=== PATIENT | female | born 1930 | race Caucasian/White ===

== ENCOUNTER 2017-05-05 18:55 | Inpatient (IN) | payer MEDICARE, OTHER ==
[~2017-05-05] VITALS: Ht 157.5 cm; Wt 65.8 kg
[2017-05-05] MEDS ORDERED: SODIUM CHLORIDE 0.9% 1,000 ML IV ONE ×2 (19:03→21:12)
[2017-05-05] MEDS ORDERED: SODIUM CHLORIDE FLUSH 10ML SYR IVF ONE (19:30)
[2017-05-05] MEDS ORDERED: SODIUM CHLORIDE 0.9% 1,000ML IVBOLUS ONE (19:30)
[2017-05-05] MEDS: PLEASE ENTER ALLERGIES MC SCH ×4 (19:30→23:36)
[2017-05-05] MEDS ORDERED: ONDANSETRON 2MG/ML, 2ML IVPush ONE (19:30)
[2017-05-05] MEDS ORDERED: ONDANSETRON 2MG/ML, 2ML ONE (19:33)
[2017-05-05 19:36] LABS: HEMATOCRIT 47.8 % (34.6-47.8); HEMOGLOBIN 16.6 g/dL (11.7-16.4); WHITE BLOOD COUNT 10.3 x10^3/uL (3.4-10)
[2017-05-05 19:46] LABS: ASPARTATE AMINO TRANSFERASE 16 U/L (15-37); BLOOD UREA NITROGEN 17 mg/dL (7-18)
[2017-05-05] MEDS ORDERED: METOCLOPRAMIDE 5 MG/ML, 2ML ONE (20:23)
[2017-05-05] MEDS ORDERED: METOCLOPRAMIDE 5 MG/ML, 2ML IVPush ONE (20:30)
[2017-05-05] MEDS ORDERED: AMLO5TAB2 PO (20:59)
[2017-05-05] MEDS ORDERED: LABE200T3 PO (20:59)
[2017-05-05] MEDS ORDERED: LEVO75TA5 PO (20:59)
[2017-05-05] MEDS ORDERED: LOSA25TA5 PO (20:59)
[2017-05-05] MEDS ORDERED: SODIUM CHLORIDE FLUSH 10ML SYR IVF PRN (21:30)
[2017-05-05] MEDS ORDERED: ONDANSETRON 2MG/ML, 2ML IVPush PRN (21:30)
[2017-05-05 22:49] VITALS: BP 126/72
[2017-05-06 02:00] VITALS: BP 124/72
[2017-05-06] MEDS ORDERED: ONDANSETRON 2MG/ML, 2ML IVPush PRN (05:00)
[2017-05-06] MEDS: PROMETHAZINE 25 MG/ML, 1ML IM PRN ×2 (05:22→09:26)
[2017-05-06 07:30] VITALS: BP 124/72
[2017-05-06] MEDS: SODIUM CHLORIDE 0.9% 1,000 ML IV SCH ×2 (09:26→21:31)
[2017-05-06 11:11] LABS: HEMATOCRIT 42.1 % (34.6-47.8); HEMOGLOBIN 14.6 g/dL (11.7-16.4); WHITE BLOOD COUNT 5.9 x10^3/uL (3.4-10)
[2017-05-06 11:22] LABS: ASPARTATE AMINO TRANSFERASE 27 U/L (15-37); BLOOD UREA NITROGEN 12 mg/dL (7-18)
[2017-05-06 13:20] VITALS: BP 145/75
[2017-05-06 20:00] VITALS: BP 149/74
[2017-05-07 02:00] VITALS: BP 147/71
[2017-05-07 08:00] VITALS: BP 135/74
[2017-05-07] MEDS ORDERED: ONDA4TAB10 PO (12:34)
[2017-05-07] MEDS ORDERED: PNEUMOCOCCAL 23 VACCINE IM-VACC ONE (13:00)
[2017-05-07 13:56] VITALS: BP 148/77
== END 2017-05-07 18:00 | disposition home or self-care (01) | DRG 391 ==
LOC: ED 21:07 → EDIP 21:12 → ED 21:36 → 4EST 22:30
PROVIDERS: ADMIT Hospitalist; ATTEND Hospitalist
DX: K52.9 Noninfective gastroenteritis and colitis, unspecified (principal); K85.90 Acute pancreatitis without necrosis or infection, unspecified; E44.0 Moderate protein-calorie malnutrition; I48.91 Unspecified atrial fibrillation; E03.9 Hypothyroidism, unspecified; I10 Essential (primary) hypertension; K44.9 Diaphragmatic hernia without obstruction or gangrene; R73.9 Hyperglycemia, unspecified; Z68.26 Body mass index [BMI] 26.0-26.9, adult; Z85.3 Personal history of malignant neoplasm of breast
CPT/HCPCS: 36415; 74022; 76700; 80053; 81003; 83690; 84484; 85025; 90732; 93005; 93306; 96361; 96374; 96375; J2405; J2550; J2765; J7030